=== PATIENT | male | born 1955 | race Caucasian/White ===

== ENCOUNTER 2018-10-31 13:47 | Emergency (ER) | payer SELFPAY | END 2018-10-31 15:34 | disposition left against medical advice (07) | LOC: FTE 13:47 | DX: Z53.21 Procedure and treatment not carried out due to patient leaving prior to being seen by health care provider (principal) ==

== ENCOUNTER 2018-11-01 07:33 | Emergency (ER) | payer OTHER ==
[2018-11-01] MEDS: DEXAMETHASONE 10 MG/ML 1 ML INJ IM (08:19)
[2018-11-01] MEDS: KETOROLAC 60 MG INJ IM (08:19)
== END 2018-11-01 08:33 | disposition home or self-care (01) ==
LOC: FTE 07:33
DX: M54.9 Dorsalgia, unspecified (principal)
CPT/HCPCS: 96372; 99284-25